=== PATIENT | male | born 1990 | race Caucasian/White ===

== ENCOUNTER 2019-12-06 11:14 | Emergency (ER) | payer OTHER ==
[~2019-12-06] VITALS: Ht 182.9 cm; Wt 104.0 kg
[2019-12-06] MEDS ORDERED: EFFE150C2 PO (11:23)
[2019-12-06] MEDS ORDERED: NS 1,000 ML IV ONE (12:00)
[2019-12-06] MEDS: LORazepam 2 MG/ML VIAL (J2060) IM STA ×2 (12:10→12:49)
[2019-12-06 12:17] LABS: HEMATOCRIT 45.4 % (42.0-52.0); HEMOGLOBIN 15.3 g/dl (13.5-17.5); MEAN CORPUSCULAR HEMOGLOBIN 29.9 pg (27.0-33.0); MEAN CORPUSCULAR HGB CONC 33.7 g/dl (32.0-36.5); MEAN CORPUSCULAR VOLUME 88.7 fl (80.0-96.0); PLATELET COUNT, AUTOMATED 287 10^3/uL (150-450); RED BLOOD COUNT 5.12 10^6/uL (4.30-6.10); WHITE BLOOD COUNT 12.5 10^3/uL (4.0-10.0)
--- NOTE | 2019-12-06 12:34 | REP ---
Clinical: Altered mental status . Comparison: None . Findings: The mediastinum and cardiac silhouette are stable and within normal limits for portable technique. The lung chavez are clear without acute consolidation, effusion, or pneumothorax. Skeletal structures are intact. Impression: No acute cardiopulmonary process appreciated. Electronically Signed by Elijah Cabrera MD 12/06/2019 12:24 P
--- NOTE | 2019-12-06 12:36 | REP ---
Clinical: Trauma . Comparison: None . Findings: Scalp contusion and hematoma overlies the left frontal bone. The ventricles, sulci, and cisterns are normal in position and appearance. Still-white differentiation is maintained. No acute intracranial hemorrhage, mass/mass effect, pathology or trauma/injury. No evidence for acute infarction. No extra-axial fluid collection. Calvarium is intact. Paranasal sinuses and mastoid air cells are clear. Impression: Scalp contusion/hematoma overlying the left frontal bone. No evidence for acute intracranial pathology or trauma/injury. Electronically Signed by Elijah Cabrera MD 12/06/2019 12:28 P
[2019-12-06 12:42] LABS: AMPHETAMINES LEVEL URINE NEGATIVE (NEGATIVE); BARBITURATES URINE NEGATIVE (NEGATIVE); BENZODIAZEPINES URINE NEGATIVE (NEGATIVE); CANNABINOIDS URINE NEGATIVE (NEGATIVE); COCAINE METABOLITE URINE NEGATIVE (NEGATIVE); METHADONE URINE NEGATIVE (NEGATIVE); OPIATES URINE NEGATIVE (NEGATIVE); PHENCYCLIDINE URINE NEGATIVE (NEGATIVE)
[2019-12-06] MEDS ORDERED: LORazepam 2 MG/ML VIAL (J2060) IV ONE (12:45)
[2019-12-06 12:51] LABS: ATYPICAL LYMPH 3 % (0-5); LYMPHOCYTES 27 % (16-44); MONOCYTES 8 % (0-5); NEUTROPHILS 62 % (28-66); PLATELET ESTIMATE NORMAL (NORMAL)
[2019-12-06 12:52] LABS: ANISOCYTOSIS 1+
[2019-12-06 12:53] LABS: ACETAMINOPHEN LEVEL < 2.0 UG/ML (10.0-30.0); ALBUMIN 4.5 GM/DL (3.2-5.2); ALT/SGPT 43 U/L (12-78); BILIRUBIN,DIRECT 0.2 MG/DL (0.0-0.2); BILIRUBIN,TOTAL 0.7 MG/DL (0.2-1.0); CK-MB VALUE MASS 2.3 NG/ML (<3.6); CPK CREATINE PHOSPHOKINASE 175 U/L (39-308); ETHYL ALCOHOL (ETHANOL) < 0.003 % (0.000-0.010); MB/CK RELATIVE INDEX 1.31 (< OR =4); SALICYLATE LEVEL < 1.7 MG/DL (5.0-30.0); TOTAL PROTEIN 7.7 GM/DL (6.4-8.2); TROPONIN I < 0.02 NG/ML (< 0.10)
[2019-12-06] MEDS ORDERED: OXAZEPAM 15 MG CAP PO ONE (14:30)
[2019-12-06 14:41] VITALS: BP 124/75
--- NOTE | 2019-12-06 19:15 | ECGEPIP ---
[facility] - ED Test Date: 2019-12-06 Pat Name: VERONA NETTLES Department: Room: - Gender: Male Director Distribution: ROCHELLE : 1990 Requested By: Diego Plaza Order Number: [id number] Reading MD: Diego Plaza Measurements Intervals [place] Rate: 75 P: 68 MO: 148 QRS: 42 QRSD: 101 T: 20 QT: 401 QTc: 449 Interpretive Statements SINUS RHYTHM NONSPECIFIC ST T WAVE CHANGES NO PRIOR ECG FOR COMPARISON Electronically Signed on 12-06-2019 19:15:40 EST by Diego Plaza
== END 2019-12-06 14:45 | disposition home or self-care (01) ==
LOC: M ED 11:14
DX: F10.231 Alcohol dependence with withdrawal delirium (principal); S00.03XA Contusion of scalp, initial encounter; W01.0XXA Fall on same level from slipping, tripping and stumbling without subsequent striking against object, initial encounter; Y92.9 Unspecified place or not applicable; F41.9 Anxiety disorder, unspecified; Z79.899 Other long term (current) drug therapy
CPT/HCPCS: 70450; 71045; 80047; 80076; 80307; 82140; 82550; 82553; 83605; 84443; 84484; 85025; 93005; 93041; 94760; 96361; 96374; 99285; G0480; J2060

== ENCOUNTER 2020-01-19 10:36 | Emergency (ER) | payer OTHER ==
[~2020-01-19] VITALS: Ht 182.9 cm; Wt 101.1 kg
[~2020-01-19 10:36] MED LIST: EFFE150C2 PO
[2020-01-19] MEDS ORDERED: LORazepam 2 MG TAB PO PRN (11:15)
[2020-01-19] MEDS ORDERED: THIAMINE 100 MG TAB PO ONE (11:45)
[2020-01-19] MEDS ORDERED: FOLIC ACID 1 MG TAB PO ONE (11:45)
[2020-01-19] MEDS ORDERED: MULTIVITAMINS/MINERALS THERAP 1 TAB PO ONE (11:45)
[2020-01-19 13:06] VITALS: BP 125/67
[2020-01-19] MEDS ORDERED: THIAMINE 100 MG TAB PO SCH (21:00)
[2020-01-20] MEDS ORDERED: MULTIVITAMINS/MINERALS THERAP 1 TAB PO SCH (09:00)
[2020-01-20] MEDS ORDERED: FOLIC ACID 1 MG TAB PO SCH (09:00)
== END 2020-01-19 13:07 | disposition home or self-care (01) ==
LOC: M ED 10:36
DX: F10.10 Alcohol abuse, uncomplicated (principal); F41.9 Anxiety disorder, unspecified; Z79.899 Other long term (current) drug therapy
CPT/HCPCS: 36415; 99284; G0480

== ENCOUNTER 2020-06-19 13:14 | Emergency (ER) | payer OTHER ==
[~2020-06-19] VITALS: Ht 182.9 cm; Wt 93.2 kg
[2020-06-19 13:15] VITALS: BP 121/77
[2020-06-19] MEDS ORDERED: LIDOCAINE W/EPINEPHRINE 1% 20ML VIAL SC ONE (13:45)
--- NOTE | 2020-07-21 10:36 | REP ---
CT CERVICAL SPINE WITHOUT CONTRAST HISTORY: Injury. COMPARISON: None. CT FINDINGS: Digital preliminary field scout views are unremarkable. There is straightening of the normal cervical lordosis. No fracture or collapse is seen. There is mild degenerative disc change at C4-5 with anterior spurring. Disc spaces are maintained. Facets normally aligned at each lumbar level. Prevertebral soft tissues are not widened. IMPRESSION: Straightening. Otherwise negative CT study of the cervical spine. Minimal degenerative disc disease at C4-5. MTDD
--- NOTE | 2020-07-21 10:37 | REP ---
CT BRAIN WITHOUT CONTRAST HISTORY: Injury. COMPARISON: Head CT study 12/06/2019. FINDINGS: Digital preliminary disability counselor radiograph is unremarkable. On bone window settings, the bony calvarium is intact. No scalp hematoma or skull fracture is appreciated. Visualized paranasal sinuses are clear. No intraorbital abnormality is seen. On soft tissue window settings, the lateral, third, and fourth ventricles are normal in size and position. Still-white differentiation pattern is normal above and below the tentorium. There is no evidence of intracranial hemorrhage. No mass, infarct, extra-axial fluid collection, or midline shift is seen. IMPRESSION: Negative noncontrast head CT. MTDD
--- NOTE | 2020-07-21 10:38 | REP ---
MAXILLOFACIAL CT STUDY HISTORY: Injury. Chin laceration and contusion. FINDINGS: There are mucous retention cysts, one on each side in the maxillary sinuses. No maxillary or mandibular fracture is seen. No condylar or condylar neck fracture is seen. Orbital margins are intact. The inferior maxillary spine and the nasal bone have an intact appearance. No intraorbital hematoma is seen. Visualized paranasal sinuses are otherwise clear. The visualized intracranial structures are unremarkable. IMPRESSION: No maxillary or mandibular fracture seen. There is a mucous retention cyst in each maxillary sinus. MTDD
== END 2020-06-19 15:25 | disposition home or self-care (01) ==
LOC: M ED 13:14
DX: S01.81XA Laceration without foreign body of other part of head, initial encounter (principal); W06.XXXA Fall from bed, initial encounter; Y92.003 Bedroom of unspecified non-institutional (private) residence as the place of occurrence of the external cause; J34.1 Cyst and mucocele of nose and nasal sinus; M50.321 Other cervical disc degeneration at C4-C5 level; F10.10 Alcohol abuse, uncomplicated

== ENCOUNTER 2020-07-20 11:59 | Emergency (ER) | payer OTHER ==
[~2020-07-20] VITALS: Ht 182.9 cm; Wt 90.9 kg
[2020-07-20] MEDS ORDERED: NS 1,000 ML IV ONE (12:45)
[2020-07-20] MEDS ORDERED: OXAZEPAM 15 MG CAP PO ONE (12:45)
[2020-07-20 13:12] LABS: HEMOGLOBIN 14.5 g/dl (13.5-17.5); MEAN CORPUSCULAR HEMOGLOBIN 31.1 pg (27.0-33.0); MEAN CORPUSCULAR HGB CONC 35.4 g/dl (32.0-36.5); PLATELET COUNT, AUTOMATED 325 10^3/uL (150-450); RED BLOOD COUNT 4.66 10^6/uL (4.30-6.10)
[2020-07-20 13:45] LABS: ACETAMINOPHEN LEVEL < 2.0 UG/ML (10.0-30.0); ALBUMIN 4.4 GM/DL (3.2-5.2); ALT/SGPT 35 U/L (12-78); BILIRUBIN,DIRECT 0.2 MG/DL (0.0-0.2); BILIRUBIN,TOTAL 0.8 MG/DL (0.2-1.0); BLOOD UREA NITROGEN 14 MG/DL (7-18); CALCIUM LEVEL 10.2 MG/DL (8.5-10.1); CARBON DIOXIDE LEVEL 24 MEQ/L (21-32); CHLORIDE LEVEL 103 MEQ/L (98-107); CREATININE FOR GFR 0.94 MG/DL (0.70-1.30); ETHYL ALCOHOL (ETHANOL) < 0.003 % (0.000-0.010); GLOMERULAR FILTRATION RATE > 60.0 (>60); GLUCOSE, FASTING 83 MG/DL (70-100); POTASSIUM SERUM 3.9 MEQ/L (3.5-5.1); SALICYLATE LEVEL < 1.7 MG/DL (5.0-30.0); SODIUM LEVEL 138 MEQ/L (136-145); TOTAL PROTEIN 7.5 GM/DL (6.4-8.2)
[2020-07-20] MEDS ORDERED: OXAZ30CA2 PO (15:13)
[2020-07-20 15:27] VITALS: BP 124/65
--- NOTE | 2020-07-21 20:47 | ECGEPIP ---
[facility] - ED Test Date: 2020-07-20 Pat Name: VERONA NETTLES Department: Room: - Gender: Male Efficiency Expert: [id number] : 1990 Requested By: SUHAIL CONNER Order Number: [id number] Reading MD: Krystle Crane Measurements Intervals [place] Rate: 62 P: 59 [place]: 138 QRS: 46 QRSD: 98 T: 38 QT: 443 QTc: 452 Interpretive Statements SINUS RHYTHM WITH MARKED SINUS ARRHYTHMIA Electronically Signed on 07-21-2020 20:46:54 EDT by Krystle Crane
== END 2020-07-20 15:29 | disposition home or self-care (01) ==
LOC: EDBD 11:59 → EDSEX 11:59 → M ED 11:59
DX: F10.239 Alcohol dependence with withdrawal, unspecified (principal); F41.1 Generalized anxiety disorder; F33.9 Major depressive disorder, recurrent, unspecified; Z79.899 Other long term (current) drug therapy
CPT/HCPCS: 80048; 80076; 84443; 85027; 93005; 96360; 96361; 99285; G0480

== ENCOUNTER 2023-01-14 10:09 | Emergency (ER) | payer OTHER ==
[~2023-01-14] VITALS: Ht 182.9 cm; Wt 95.2 kg
[~2023-01-14 10:09] MED LIST changes: +OXAZ30CA2 PO
[2023-01-14] MEDS ORDERED: BUSP10TA (10:46)
[2023-01-14 13:22] LABS: HEMATOCRIT 42.1 % (42.0-52.0); HEMOGLOBIN 14.9 g/dl (13.5-17.5); MEAN CORPUSCULAR HEMOGLOBIN 30.8 pg (27.0-33.0); MEAN CORPUSCULAR HGB CONC 35.4 g/dl (32.0-36.5); MEAN CORPUSCULAR VOLUME 87.2 fl (80.0-96.0); PLATELET COUNT, AUTOMATED 301 10^3/uL (150-450); RED BLOOD COUNT 4.83 10^6/uL (4.30-6.10); WHITE BLOOD COUNT 9.2 10^3/uL (4.0-10.0)
[2023-01-14 13:23] LABS: BASO % 0.5 % (0.0-1.0); EOS % 0.1 % (0.0-3.0); HEMATOCRIT 43.7 % (42.0-52.0); LYMPH # 2.9 10^3/uL (1.5-5.0); LYMPH % 33.3 % (24.0-44.0); MEAN CORPUSCULAR HEMOGLOBIN 30.1 pg (27.0-33.0); MEAN CORPUSCULAR HGB CONC 34.3 g/dl (32.0-36.5); MEAN CORPUSCULAR VOLUME 87.6 fl (80.0-96.0); MONO # 0.8 10^3/uL (0.0-0.8); NEUTROPHILS # 4.9 10^3/uL (1.5-8.5); NEUTROPHILS % 56.9 % (36.0-66.0); PLATELET COUNT, AUTOMATED 314 10^3/uL (150-450); RED BLOOD COUNT 4.99 10^6/uL (4.30-6.10); WHITE BLOOD COUNT 8.6 10^3/uL (4.0-10.0)
[2023-01-14 13:36] LABS: INR 0.91; PARTIAL THROMBOPLASTIN TIME 25.9 SECONDS (24.8-34.2); PROTHROMBIN TIME 12.5 SECONDS (12.5-14.5)
[2023-01-14 13:42] LABS: LIPASE 27 U/L (12-53)
[2023-01-14 13:43] LABS: AMYLASE 59 U/L (30-118)
[2023-01-14 13:47] LABS: ALBUMIN 4.6 G/DL (3.2-5.2); ALKALINE PHOSPHATASE 67 U/L (46-116); ALT/SGPT 63 U/L (7.0-40); AST/SGOT 59 U/L (<34); BILIRUBIN,DIRECT 0.4 MG/DL (<0.4); BILIRUBIN,TOTAL 1.6 MG/DL (0.3-1.2); BLOOD UREA NITROGEN 9 MG/DL (9-23); CALCIUM LEVEL 9.1 MG/DL (8.5-10.1); CARBON DIOXIDE LEVEL 27 MMOL/L (20-31); CHLORIDE LEVEL 103 MMOL/L (98-107); CREATININE FOR GFR 0.74 MG/DL (0.70-1.30); GLOMERULAR FILTRATION RATE > 60.0 (>60); GLUCOSE, FASTING 82 MG/DL (60-100); POTASSIUM SERUM 3.9 MMOL/L (3.5-5.1); SODIUM LEVEL 136 MMOL/L (136-145); TOTAL PROTEIN 7.4 G/DL (5.7-8.2)
[2023-01-14 14:34] VITALS: BP 138/82
== END 2023-01-14 14:50 | disposition home or self-care (01) ==
LOC: M ED 10:09
DX: S30.0XXA Contusion of lower back and pelvis, initial encounter (principal); S00.93XA Contusion of unspecified part of head, initial encounter; F07.81 Postconcussional syndrome; W10.8XXA Fall (on) (from) other stairs and steps, initial encounter; F10.20 Alcohol dependence, uncomplicated; Y92.009 Unspecified place in unspecified non-institutional (private) residence as the place of occurrence of the external cause; Z88.8 Allergy status to other drugs, medicaments and biological substances